=== PATIENT | male | born 1965 | race Caucasian/White ===

== ENCOUNTER 2016-12-17 12:35 | Inpatient (IN) | payer OTHER ==
[~2016-12-17] VITALS: Ht 170.2 cm; Wt 95.6 kg
[2016-12-22] MEDS ORDERED: TRAM50TA PO (15:27)
[2016-12-22] MEDS ORDERED: GLIP1TAB60 PO (15:27)
[2016-12-22] MEDS ORDERED: OMEP20TA PO (15:27)
[2016-12-22] MEDS ORDERED: CYAN25003 SL (15:27)
[2016-12-22] MEDS ORDERED: ATOR20TA15 PO (15:27)
[2016-12-22] MEDS ORDERED: VITA2000 PO (15:27)
[2016-12-22] MEDS ORDERED: BUPR150XL PO (15:27)
[2016-12-22] MEDS ORDERED: LOSA100T PO (15:27)
[2016-12-22] MEDS ORDERED: METF1000 PO (15:27)
[2016-12-23] MEDS ORDERED: ceFAZolin 2 GM PREMIX 50 ML ONE (09:07)
[2016-12-23] MEDS ORDERED: GENTAMICIN SULFATE 80 MG/2 ML VIAL ONE (09:08)
[2016-12-23] MEDS ORDERED: BUPIVACAINE/EPINEPHRINE 0.25% PF 30 ML VIAL ONE (09:08)
[2016-12-23] MEDS ORDERED: LACTATED RINGER'S 1000 ML IV SCH (09:45)
[2016-12-23] MEDS ORDERED: ceFAZolin 2 GM PREMIX 50 ML IV SCH (09:45)
[2016-12-23] MEDS ORDERED: CHLORHEXIDINE GLUCONATE 4% SOLN 120 ML BTL TOP SCH (09:45)
[2016-12-23] MEDS: SODIUM CHLORID 0.9% 500 ML IV SCH (09:45)
[2016-12-23] MEDS ORDERED: VANCOMYCIN 1000 MG/NS 250 ML (for <70 kg) IV SCH ×2 (09:45)
[2016-12-23] MEDS ORDERED: INSULIN HUMAN REGULAR 1,000 UNITS/10 ML VIAL SQ PRN (09:45)
[2016-12-23] MEDS ORDERED: METOPROLOL TARTRATE 25 MG TAB PO PRN (09:45)
[2016-12-23] MEDS ORDERED: SODIUM CHLOR 0.9% 250 ML INJ 250 ML ONE (09:48)
[2016-12-23] MEDS ORDERED: VANCOMYCIN HCL 1000 MG VIAL ONE (09:48)
[2016-12-23 09:50] VITALS: BP 138/95; PULSE 118; RESP 20; TEMP 99.3; O2SAT 97
[2016-12-23] MEDS ORDERED: FAMOTIDINE 20 MG/2 ML VIAL ONE (10:41)
[2016-12-23] MEDS ORDERED: MIDAZOLAM HCL 2 MG/2 ML VIAL ONE (10:41)
[2016-12-23] MEDS ORDERED: DEXAMETHASONE SOD PHOS 4 MG/ML VIAL ONE (10:41)
[2016-12-23] MEDS ORDERED: PROPOFOL 200 MG/20 ML AMP IV ONE (12:00)
[2016-12-23] MEDS ORDERED: PHENYLEPH/NS 1000 MCG/10 ML SYR IV ONE (12:00)
[2016-12-23] MEDS ORDERED: NEOSTIGMINE 3 MG/3 ML SYR IV ONE (12:00)
--- NOTE | 2016-12-23 13:41 | PD.OP ---
cc: Alistair Babocck MD; Abisai Babcock MD Operative Report Date of Surgery: Dec 23, 2016 Preoperative Diagnosis: Herniated nucleus pulposus C6 7, left. Left C7 radiculopathy Postoperative Diagnosis: Same Procedure: Anterocervical discectomy decompression with bilateral foraminotomies, C6 7. Resection herniated nucleus pulposus, C6 7, left, foraminal. Left anterior iliac crest bone graft Anesthesia: Gen. Surgeon: Abisai Babcock Hand Flesher(s): AMANDA Madera Operation and Findings: EBL: 50 cc INDICATIONS: This patient is a 51-year-old male with significant left arm pain and weakness. Studies shows evidence of a compromised left C7 nerve root related to a disc herniation in the foramen C6 7 to the left. This patient presents for surgical treatment NOTE: Angela Madera PA-C was present for the entire surgical procedure as my office manager executive assistant. In my medical opinion her skill and care was necessary for proper management of this patient PROCEDURE: The patient was brought to the operating room and anesthetized in the supine position. This patient was positioned supine on the radiolucent table. All pressure points were protected in the anterior cervical spine and iliac crest was scrubbed with alcohol followed by Hibiclens followed by ChloraPrep. A timeout was done and antibiotics were given within 1 hour time window. Lateral radiographic images were used identifying the proper level. A right anterior incision was made in line with skin creases. The platysma was opened in line with the incision. Deep dissection continued in the interval between the carotid sheath and the esophagus. The longus-coli muscles were lifted on both sides and retractors were positioned allowing good exposure. Lateral radiographic images were used to identify the proper level. Ladora style interosseous pins were placed at C6 and C7 allowing exposure to that level. The microscope was rolled into the field. A total discectomy was accomplished and posterior osteophytes were removed. The posterior longitudinal ligament and annulus was taken down. Bilateral foraminotomies were accomplished. The endplates were squared up anticipating later bone grafting. A blunt probe could be placed out each foramen without evidence of nerve root compromise. The left iliac crest was approached. A small stab incision was made allowing percutaneous access to the anterior iliac crest. Multiple cores of cancellous bone were harvested and taken to the back table to be used for later bone grafting. The wound was irrigated anesthetized and closed with 4-0 Vicryl followed by Dermabond. The case was turned over to Dr. Alistair Babcock for fusion and instrumentation per his dictation. FINDINGS: There was evidence of a disc herniation into the foramen to the left affecting the left C7 nerve root. A very aggressive foraminotomy was accomplished allowing complete decompression of the nerve root traveling around the pedicle. No complication was noted. The decompression was felt to be very satisfactory NOTE: This surgery was performed in 2 parts. The first part was the neurosurgical decompression performed under the variable power stereo microscope by the undersigned in addition to the bone graft. The second portion of the surgery will be performed by the orthopedic spine component by co -surgeon, Dr. Alistair Babcock for the anterior fusion with interbody cage and anterior plate. The skill of 2 surgeons was necessary to perform distinct separate procedural services as dictated above and dictated in the following operative note by Dr. Alistair Babcock. Abisai Babcock MD Dec 23, 2016 13:41
[2016-12-23] MEDS ORDERED: ONDANSETRON HCL 4 MG/2 ML VIAL IV PRN (14:45)
[2016-12-23] MEDS ORDERED: Post-op Orders (for Pharmacy) MISC XX ONE (14:45)
[2016-12-23] MEDS: SODIUM CHLORIDE 0.9% FLUSH 5 ML FLUSH IVF SCH ×2 (14:45→20:34)
[2016-12-23] MEDS ORDERED: SODIUM CHLORIDE 0.9% FLUSH 5 ML FLUSH IVF PRN (14:45)
[2016-12-23] MEDS ORDERED: PROMETHAZINE INJ 25 MG/ML VIAL IM PRN (14:45)
[2016-12-23] MEDS ORDERED: ALUMINUM/MAGNESIUM/SIMETH 30 ML CUP PO PRN (14:45)
[2016-12-23] MEDS ORDERED: MORPHINE SULFATE 4 MG/ML INJ IV PUSH PRN (14:45)
[2016-12-23] MEDS ORDERED: ACETAMINOPHEN/HYDROcodone 325 MG/7.5 MG TAB PO PRN (14:45)
[2016-12-23] MEDS ORDERED: DO NOT ADM ANY ANTICOAGULANT DRUGS XX PRN (14:47)
[2016-12-23] MEDS ORDERED: fentaNYL CITRATE 250 MCG/5 ML AMP ONE (14:54)
[2016-12-23] MEDS ORDERED: *morphine SULFATE 8 MG/ML PERIprocedure ONLY ONE ×2 (15:11→15:38)
[2016-12-23] MEDS: LACTATED RINGER'S 1000 ML INJ 1,000 ML IV SCH (15:18)
--- NOTE | 2016-12-23 15:56 | RADRPT ---
EXAM DATE/TIME: 12/23/2016 12:32 [facility] COMPARISON: No previous studies available for comparison. INDICATIONS : Fusion C6,C7 with screw and plate placement. MEDICAL HISTORY : None. SURGICAL HISTORY : None. ENCOUNTER: Initial ACUITY: 1 day PAIN SCORE: Non-responsive. LOCATION: Cervical spine. FINDINGS: 4 views of the cervical spine were obtained and demonstrate anterior plate and screws at C6-C7 with m aterial in the disc space. Findings are indicative of anterior cervical discectomy and fusion. CONCLUSION: Findings indicating ACDF at C6-C7. Parth Alexander MD on December 23, 2016 at 15:53 Board Certified Radiologist. This report was verified electronically.
[2016-12-23] MEDS: ACETAMINOPHEN/HYDROcodone 325 MG/7.5 MG TAB PO PRN (17:58)
[2016-12-23] MEDS ORDERED: metFORMIN HCL 500 MG TAB PO SCH (18:00)
[2016-12-23 18:13] VITALS: BP 116/81; PULSE 123; RESP 18; TEMP 97.1; O2SAT 93
[2016-12-23 20:15] VITALS: BP 116/78; PULSE 118; RESP 17; TEMP 97.9; O2SAT 93
[2016-12-23] MEDS ORDERED: ATORVASTATIN 20 MG TAB PO SCH (21:00)
[2016-12-23] MEDS ORDERED: PANTOPRAZOLE SOD 20 MG DELAYED RELEASE TAB PO SCH (21:00)
[2016-12-23] MEDS ORDERED: ZOLPIDEM TARTRATE 5 MG TAB PO PRN (21:00)
[2016-12-24 00:20] VITALS: BP 138/79; PULSE 116; RESP 18; TEMP 96.3; O2SAT 95
[2016-12-24] MEDS: ACETAMINOPHEN/HYDROcodone 325 MG/7.5 MG TAB PO PRN (02:19)
[2016-12-24] MEDS: SODIUM CHLORID 0.9% 500 ML IV SCH (02:25)
[2016-12-24 04:20] VITALS: BP 128/89; PULSE 106; RESP 18; TEMP 97.6; O2SAT 93
[2016-12-24] MEDS: LACTATED RINGER'S 1000 ML INJ 1,000 ML IV SCH (04:30)
--- NOTE | 2016-12-24 07:03 | PD.ORT.PN ---
Subjective Subjective Remarks pt doing well, arm pain has resolved denies any shortness of breath, denies any chest pain Objective Vitals Vital Signs Date Time Temp Pulse Resp B/P Pulse Ox O2 Delivery O2 Flow Rate FiO2 12/24/16 04:20 97.6 106 18 128/89 93 12/24/16 00:20 96.3 116 18 138/79 95 12/23/16 20:15 97.9 118 17 116/78 93 12/23/16 19:49 Nasal Cannula 2.00 12/23/16 18:13 97.1 123 18 116/81 93 12/23/16 15:45 113 15 139/97 95 Nasal Cannula 2 12/23/16 15:30 104 13 126/84 94 Nasal Cannula 2 12/23/16 15:15 106 13 128/86 93 Nasal Cannula 2 12/23/16 15:00 104 16 144/92 93 Nasal Cannula 2 12/23/16 14:45 98.1 108 14 148/94 94 Nasal Cannula 2 12/23/16 09:50 99.3 118 20 138/95 97 I/O 12/23/16 12/23/16 12/23/16 12/24/16 12/24/16 12/24/16 07:00 15:00 23:00 07:00 15:00 23:00 Intake Total 700 ml 240 ml 1421 ml Output Total 50 ml Balance 650 ml 240 ml 1421 ml Intake Oral 240 ml 240 ml IV Total 1181 ml Other 700 ml Output Estimated Blood Loss 50 ml # Voids 1 3 # Bowel Movements 0 0 Objective Remarks seen by Dr. Alistair Babcock [place] collar in place dressing dry and intact Motor is +5/5 to UE Assessment & Plan Assessment and Plan POD # 1 C6-7 ACDF [place] collar x 2 weeks no overhead lifting, no smoking, no NSAIDs [place] rx in chart discharge home today, orthopedically stable Ivette Peoples Dec 24, 2016 07:03
[2016-12-24 08:00] VITALS: BP 148/89; PULSE 112; RESP 16; TEMP 98.3; O2SAT 96
[2016-12-24] MEDS ORDERED: GLIPIZIDE 2.5 MG PO SCH (09:00)
[2016-12-24] MEDS ORDERED: MULTIVITAMINS/MINERALS THERAPEUTIC TAB PO SCH (09:00)
[2016-12-24] MEDS ORDERED: LOSARTAN 50 MG TAB PO SCH (09:00)
[2016-12-24] MEDS ORDERED: buPROPion HCL 150 MG EXTENDED RELEASE TAB PO SCH (09:00)
[2016-12-24] MEDS ORDERED: ONDANSETRON HCL 4 MG/2 ML VIAL IV PUSH ONE (09:54)
--- NOTE | 2016-12-29 07:09 | MP ---
cc: UNA BABCOCK M.D., MARK W. M.D., PH.D DATE OF SURGERY 12/23/2016 PREOPERATIVE DIAGNOSIS C6-7 herniated nucleus pulposus. POSTOPERATIVE DIAGNOSIS C6-7 herniated nucleus pulposus. PROCEDURE C6-7 anterior interbody fusion, SpineNet ACC anterior cervical cage, SpineNet Rauscher anterior spinal rotation. SURGEON Victor Hugo Babcock MD QC MANAGER Ivette Peoples PA-C SPECIMENS None ESTIMATED BLOOD LOSS 50 cc for entire case COMPLICATIONS None ANESTHESIA General DRAINS None CONDITION Stable PLAN OF ACTIVITY As per orders. PROCEDURE Surgery was done as a co-surgeon with Dr. Abisai Babcock. Dr. Abisai Babcock performed the neurosurgical decompression of the procedure. This included a C6-7 anterior cervical diskectomy, right-sided foraminotomy and decompression using an operative microscope and left anterior iliac crest bone grafting. I performed the orthopedic fusion and stabilization portion of the procedure as a co-surgeon. My [employer] assistant manager Ivette Peoples PA-C was present for my portion of the case. She was medically necessary for this portion of the case because of the complexity of the case and to facilitate the performance of the procedure. The ASSOCIATE ARTISTIC DIRECTOR at the back table was not a skill set for this case to manipulate the instruments e.g. the multiple different types of soft tissue tractors, trial implants and permanent implants. The patient brought into the operating room, had satisfactory general endotracheal anesthesia by Dr. Up of the Department of Anesthesia. The patient was prepped, draped in usual sterile manner. Dr. Abisai Babcock performed a right transverse anterior cervical spine exposure to C6-7. Using the operative microscope, we performed an anterior cervical diskectomy, anterior decompression, right-sided foraminotomy at C6-7. We also performed a left anterior iliac crest bone grafting. I was not present for his portion of the procedure. The endplates at C6-7 were prepared for fusion. Hyaline cartilage endplate was used with angled curettes and burs. A 7, 10 x 12 ACC cage placed in the interspace. Anterior iliac crest bone grafting was used for interbody fusion under fluoroscopic guidance. Anterior osteophytes were removed using multiple different types of rongeurs and a bur. A 23-mm length SpineNet Rauscher plate was used for anterior spinal instrumentation. Two tacks were used under fluoroscopic guidance for appropriate positioning of the plate. Under fluoroscopic guidance, each screw was inserted. The screws were initially drilled screw holes and then 14 mm length screws 4.0 mm diameter fixed angle screws were used and each screw was appropriately locked to the screw head. Two screws were used in the vertebral body of C6 and C7. The wound was irrigated with copious amounts of saline. The wound itself was dry. Because of the patient's large-sized, it was somewhat difficult to visualize the C6-7, but the procedure was satisfactorily performed. The wound was irrigated with copious amounts of saline. The wound itself was dry. The wound was closed in routine manner with multiple 3-0 Vicryl sutures. The skin was approximated with running subcuticular 4-0 Vicryl. Dermabond placed over the skin incision. Sterile dressings were applied. The patient was placed in a [place] cervical orthosis. The patient tolerated the procedure well and arrived in the Recovery Room in stable and satisfactory condition. MD MARIA INES Richards/ZAHIRA /2:44 PM /6:51 AM
== END 2016-12-24 09:55 | disposition home or self-care (01) | DRG 473 ==
LOC: HSDI 12-23 08:56 → N06A 12-23 16:55
PROVIDERS: ADMIT Orthopaedic Surgery Orthopaedic Surgery of the Spine; ATTEND Orthopaedic Surgery Orthopaedic Surgery of the Spine
PROC: 0RT30ZZ Resection of Cervical Vertebral Disc, Open Approach (ICD-10-PCS; 2016-12-23)
PROC: 0QB30ZZ Excision of Left Pelvic Bone, Open Approach (ICD-10-PCS; 2016-12-23)
PROC: 0RG10A0 Fusion of Cervical Vertebral Joint with Interbody Fusion Device, Anterior Approach, Anterior Column, Open Approach (ICD-10-PCS; principal; 2016-12-23 11:12)
DX: M50.123 Cervical disc disorder at C6-C7 level with radiculopathy (principal); E11.8 Type 2 diabetes mellitus with unspecified complications; F17.210 Nicotine dependence, cigarettes, uncomplicated; K21.9 Gastro-esophageal reflux disease without esophagitis; E78.00 Pure hypercholesterolemia, unspecified
CPT/HCPCS: 72040; 76000; 82948; 94150; C1713; J0690; J1100; J1580; J2250; J2270; J2370; J2405; J2710; J3010; J3370; J7040; J7050; J7120